=== PATIENT | male | born 1990 | race Caucasian/White ===

== ENCOUNTER 2017-03-29 14:49 | Emergency (ER) | payer BC, SELFPAY ==
[~2017-03-29] VITALS: Ht 172.7 cm; Wt 137.9 kg
[2017-03-29 14:50] VITALS: BP 141/66
[2017-03-29] MEDS ORDERED: PRED20TA PO (15:43)
[2017-03-29] MEDS ORDERED: PEPC1TAB4 PO (15:43)
== END 2017-03-29 15:53 | disposition home or self-care (01) ==
LOC: M ED 14:49
DX: L25.9 Unspecified contact dermatitis, unspecified cause (principal)